=== PATIENT | male | born 1965 | race Hispanic/Latino ===

== ENCOUNTER 2019-03-12 00:02 | Emergency (ER) | payer SELFPAY ==
[2019-03-12 00:31] LABS: #Basophils 0.1 thou/uL (0.0-0.2); #Eosinphils 0.1 thou/uL (0.0-0.7); #Lymphocytes 2.3 thou/uL (1.20-3.40); #Monocytes 0.8 thou/uL (0.11-0.59); #Neutrophils 11.1 thou/uL (1.40-6.50); %Basophils 0.3 % (0.0-1.0); %Eosinophils 0.6 % (0.0-10.0); %Lymphocytes 16.2 % (21.0-51.0); %Monocytes 5.3 % (0.0-10.0); %Neutrophils 77.5 % (42.0-75.0); Hemoglobin 14.2 g/dL (14.0-18.0); Mean Corpuscular HGB CONC 33.1 g/dL (32.0-36.0); Mean Corpuscular Hemoglobin 30.4 pg (27.0-31.0); Mean Corpuscular Volume 91.7 fL (78.0-98.0); Mean Platelet Volume 9.4 fL (7.4-10.4); Platelet Count 181 thou/uL (130-400); RBC Distribution Width 13.9 % (11.5-14.5); Red Blood Cell (RBC) Count 4.69 mill/uL (4.70-6.10); White Blood Cell (WBC) Count 14.3 thou/uL (4.8-10.8)
[2019-03-12] MEDS ORDERED: traMADol HCl 50 MG TAB ONE (01:16)
[2019-03-12] MEDS ORDERED: Ibuprofen 800 MG TAB ONE (01:16)
--- NOTE | 2019-03-12 07:47 | RAD ---
Right ankle 3 views HISTORY: Right ankle pain. FINDINGS: Ankle mortise and talar dome are intact and osteophytosis. Diffuse soft tissue swelling abo ut the ankle. Osteophytosis of the ankle and hindfoot. Plantar enthesophyte at the posterior aspect of the calcaneal base. No acute fracture or dislocation. IMPRESSION: Soft tissue swelling. No acute osseous abnormalities are demonstrated. Osteoarthritic changes of the ankle and hindfoot. Plantar heel spur.
== END 2019-03-12 01:23 | disposition home or self-care (01) ==
LOC: ERS 00:02
DX: L03.115 Cellulitis of right lower limb (principal)
CPT/HCPCS: 36415; 84550; 85025